=== PATIENT | male | born 2000 | race African-American/Black ===

== ENCOUNTER 2023-08-20 15:30 | Emergency (ER) | payer OTHER ==
[~2023-08-20] VITALS: Ht 177.8 cm; Wt 112.0 kg
[2023-08-20 15:37] VITALS: TEMP 98
[2023-08-20] MEDS: KETOROLAC TROMETHAMINE 30 MG/ML VIAL IM ONE (16:50)
[2023-08-20] MEDS: LIDOCAINE 5% TRANSDERMAL PATCH TD ONE (16:51)
[2023-08-20 17:01] LABS: APPEARANCE,URINE CLEAR (CLEAR); BILIRUBIN,URINE NEGATIVE (NEGATIVE); COLOR,URINE LIGHT YELLOW (YELLOW); GLUCOSE, URINE (UA) NEGATIVE (NEGATIVE); KETONES,URINE NEGATIVE (NEGATIVE); LEUKOCYTE ESTERASE ,URINE NEGATIVE (NEGATIVE); NITRATE,URINE NEGATIVE (NEGATIVE); OCCULT BLOOD,URINE NEGATIVE (NEGATIVE); PROTEIN,URINE NEGATIVE (NEGATIVE); SPECIFIC GRAVITIY, URINE 1.018 (1.003-1.030); UROBILINOGEN,URINE <=1.0 mg/dL (<=1.0)
[2023-08-20] MEDS ORDERED: CYCL-448 PO (18:13)
[2023-08-20] MEDS ORDERED: IBUP-1492 PO (18:13)
[2023-08-20 18:30] VITALS: BP 129/75; PULSE 73; RESP 16
== END 2023-08-20 19:24 | disposition home or self-care (01) ==
LOC: EMS 15:30
DX: M54.50 Low back pain, unspecified (principal)
CPT/HCPCS: 99284; 81003; 72100; 96372; J1885